=== PATIENT | male | born 1985 | race Hispanic/Latino ===

== ENCOUNTER 2022-07-28 11:13 | Emergency (ER) | payer OTHER, SELFPAY ==
[2022-07-28 11:16] VITALS: BP 105/68; PULSE 71; RESP 14; TEMP 36.6; O2SAT 98; BMI 20.5
--- NOTE | 2022-07-28 11:34 | CT_ITS ---
STUDY: CT SOFT TISSUE NECK WITH CONTRAST REASON FOR EXAM: Male, 36 years old. Concerns for peritonsillar abscess RADIATION DOSAGE (If Supplied By Facility): CTDIvol = ( 10.69 ) mGy, DLP = ( 333.87 ) mGycm TECHNIQUE: The patient was scanned in a multi-detector CT scanner. High resolution transaxial imaging was performed following intravenous administration of IV 75mL Isovue-370. Sagittal and coronal images were reconstructed. Individualized dose optimization techniques were used for this CT. COMPARISON: None. FINDINGS: Normal bilateral parotid glands. Normal bilateral wrapper rewinder spaces. Normal bilateral parapharyngeal spaces. Normal bilateral carotid spaces. Normal bilateral sublingual and submandibular glands and spaces. Normal visualized nasopharynx. Normal retropharyngeal space. Normal perivertebral space. There is a 3.5 cm x 1.8 cm well-defined hypodensity in the right subcapsular region along the inner aspect of the angle of the right mandible. This lies deep to the right palatine tonsils. An early abscess should be ruled out. There is deformity of the hypopharynx due to the mass effect. The visualized tongue, tongue base and oropharynx are normal. The visualized cervical lymph nodes (levels I-) are within normal size limits, and maintain normal morphology. There is no demonstrated solid or cystic mass lesion. There is no abnormal contrast enhancement. Normal epiglottis, bilateral vallecula and hypopharynx. The pre-epiglottic and paraglottic adipose spaces are normal. Normal visualized bilateral piriform sinuses, aryepiglottic folds, vocal cords, and arytenoid-cricoid articulations. Normal subglottic trachea. Normal bilateral lobes of the thyroid gland. Normal visualized pulmonary apices. Normal visualized paranasal sinuses. Normal visualized cervical spine. CT/Soft Tissue Neck WITH Contrast IMPRESSION: Findings suggestive of a 3.5 cm x 1.8 cm phlegmon and possible early abscess formation deep to the right palatine tonsils. Electronically Signed: Reginald Acosta MD at 13:06 EDT ,
--- NOTE | 2022-07-28 11:42 | EX.ED.DYSGE1 ---
HPI <SHEELA France - Last Filed: 07/28/22 20:20> History of Present Illness Chief Complaint: Sore Throat Narrative Narrative: Patient presenting today with a sore throat that he has had since July 20. He states that it acutely worsened on Monday and that is most pronounced on the right side. He feels like there is a lump on the right side of his throat. As of yesterday, he has been unable to tolerate food but is tolerating fluids without difficulty. He is tolerating his secretions. He went to his PCP today who sent him to the emergency department due to trismus, odynophagia, and concerns for peritonsillar abscess. He also states that he had his right mandibular wisdom tooth removed on July 11 but did not have any complications afterwards. He denies any fever, chills, and shortness of breath. PMH includes hypothyroidism. PFSH <SHEELA [place] - Last Filed: 07/28/22 20:20> PFSH Medical History Hypothyroid Home Medications amoxicillin 875 mg-potassium clavulanate 125 mg tablet 1 tab PO BID 10 days #20 tabs 07/28/22 [Rx Last Taken Unknown] oxycodone-acetaminophen 5 mg-325 mg tablet (Percocet) 1 tab PO Q8H PRN pain 3 days #8 tabs 07/28/22 [Rx Last Taken Unknown] Allergy/AdvReac Type Severity Reaction Status Date / Time lactose AdvReac Diarrhea Verified 07/28/22 11:16 Social History Smoking Status: Never smoker ROS <SHEELA [place] - Last Filed: 07/28/22 20:20> ROS ED Constitutional Constitutional ED: Denies chills, fever(s) or sweats ENT ENT ED: Reports ear pain right and sore throat; Denies rhinorrhea Cardiovascular Cardiovascular: Reports palpitations; Denies chest pain Respiratory/Chest Respiratory/Chest: Denies cough, dyspnea or tachypnea Gastrointestinal Gastrointestinal: Denies abdominal pain, nausea or vomiting Musculoskeletal Musculoskeletal: Denies arthralgias or myalgias Integumentary Denies rash Neurologic Neurologic: Denies weakness Psychiatric Psychiatric: Denies anxiety or depression Allergic/Immunologic Allergic/Immunologic ED: Denies lip swelling or mouth swelling EXAM <SHEELA [place] - Last Filed: 07/28/22 20:20> Physical Exam Const Vital Signs: 07/28/22 11:16 07/28/22 13:52 07/28/22 13:55 Temperature 98 F 97.1 F L Temperature Source Temporal Temporal Pulse Rate 71 71 Respiratory Rate 14 16 Blood Pressure 105/68 118/78 118/78 Blood Pressure Mean 80 91 91 Pulse Ox 98 96 Oxygen Delivery Method Room Air Room Air Positive well nourished, well developed and no apparent distress General Appearance ED: well developed HEENT Reports normocephalic, head/scalp atraumatic and TM's clear HEENT Narrative: Because patient has trismus, I am unable to visualize patient's mouth or posterior pharynx. Tympanic Membrane ED: Yes TM's clear Mouth ED: Yes moist mucous membranes normal Eyes PERRL and EOMs intact bilaterally Neck full ROM and supple Chest Wall inspection of chest normal Resp normal respiratory effort and clear to auscultation bilaterally Cardio regular rate and regular rhythm GI soft to palpation, non-tender, non-distended and no masses Back/Spine normal ROM and normal to inspection Extremity normal to inspection and full ROM Neuro oriented x3, CN's II-XII intact bilaterally, moves all extremities, no focal motor deficits and no sensory deficits noted Sensorium / Orientation: awake and alert Psych mental status grossly normal and thought process normal Skin no rashes or lesions noted and no wounds <Dr. Geovany Arana, DO - Last Filed: 07/28/22 16:17> Physical Exam Const Vital Signs: 07/28/22 11:16 07/28/22 13:52 07/28/22 13:55 Temperature 98 F 97.1 F L Temperature Source Temporal Temporal Pulse Rate 71 71 Respiratory Rate 14 16 Blood Pressure 105/68 118/78 118/78 Blood Pressure Mean 80 91 91 Pulse Ox 98 96 Oxygen Delivery Method Room Air Room Air MDM <SHEELA [place] - Last Filed: 07/28/22 20:20> MDM MDM Narrative Medical decision making narrative: Patient presenting with concerns for a peritonsillar abscess. He does have significant trismus on examination and I am unable to visualize patient's mouth/posterior pharynx. He has no drooling, no stridor, no shortness of breath. He is well-appearing and in no acute distress, vital signs are WNL and he is afebrile. Labs will be obtained to rule out leukocytosis, anemia, electrolyte abnormality. CT soft tissue of the neck will be obtained to rule out deep neck infection/peritonsillar abscess. Patient has been given Unasyn and Decadron here as well as Toradol and IV fluids. CT scan does suggest a abscess deep to the right palatine tonsils. I have given patient additional pain control. I have spoke to Dr. Sierra with ENT who felt that this abscess was actually a dental abscess. During observation, this abscess did spontaneously drain and the patient began spitting up large amounts of pus. His trismus has improved significantly and he is able to fully open his mouth without pain. He states that he feels much better. There is no airway compromise and he tolerating this without any difficulty. Able to swallow Augmentin here without any difficulty. I have given him a prescription for Augmentin and pain control. Given him strict return instructions. He is to follow-up with the oral surgeon who removed his wisdom tooth as well as his PCP. He will be discharged home in stable condition and is comfortable with plan. Lab Data Labs: Laboratory Results - last 24 hr 07/28/22 07/28/22 11:40 11:40 WBC 19.8 H RBC 4.79 Hgb 14.3 Hct 41.7 MCV 87.1 MCH 29.9 MCHC 34.3 RDW Std Deviation 38.5 RDW Coeff of Loulou 12.0 Plt Count 402 MPV 10.0 Immature Gran % (Auto) 0.700 Neut % (Auto) 84.9 H Lymph % (Auto) 5.9 L Hart % (Auto) 7.7 Eos % (Auto) 0.5 Baso % (Auto) 0.3 Absolute Neuts (auto) 16.8 H Absolute Lymphs (auto) 1.16 Nucleated RBC % 0 Differential Comment COMMENT Diff Path Review May foll Sodium 140 Potassium 3.5 Chloride 106 Carbon Dioxide 29.0 Anion Gap 5 BUN 10 Creatinine 1.05 Estim Creat Clear Calc 76.30 Est GFR (MDRD) Af Amer 102 Est GFR (MDRD) Non-Af 84 BUN/Creatinine Ratio 9.5 L Glucose 108 H Calcium 10.1 Radiography Diagnostic Testing: Clinical Impression(s) from Imaging Studies Soft Tissue Neck CT 05/11/23 11:34 IMPRESSION: Findings suggestive of a 3.5 cm x 1.8 cm phlegmon and possible early abscess formation deep to the right palatine tonsils. Electronically Signed: Reginald Acosta MD at 13:06 EDT , <Dr. Geovany Arana, DO - Last Filed: 07/28/22 16:17> [facility] Lab Data Attestation: I reviewed the patient's lab results. Lab results narrative: CBC with marked leukocytosis suggestive of systemic inflammation, no anemia, no thrombocytopenia BMP without evidence of significant electrolyte abnormalities, no anion gap, no acute kidney injury. Labs: Laboratory Results - last 24 hr 07/28/22 07/28/22 11:40 11:40 WBC 19.8 H RBC 4.79 Hgb 14.3 Hct 41.7 MCV 87.1 MCH 29.9 MCHC 34.3 RDW Std Deviation 38.5 RDW Coeff of Loulou 12.0 Plt Count 402 MPV 10.0 Immature Gran % (Auto) 0.700 Neut % (Auto) 84.9 H Lymph % (Auto) 5.9 L Hart % (Auto) 7.7 Eos % (Auto) 0.5 Baso % (Auto) 0.3 Absolute Neuts (auto) 16.8 H Absolute Lymphs (auto) 1.16 Nucleated RBC % 0 Differential Comment COMMENT Diff Path Review May foll Sodium 140 Potassium 3.5 Chloride 106 Carbon Dioxide 29.0 Anion Gap 5 BUN 10 Creatinine 1.05 Estim Creat Clear Calc 76.30 Est GFR (MDRD) Af Amer 102 Est GFR (MDRD) Non-Af 84 BUN/Creatinine Ratio 9.5 L Glucose 108 H Calcium 10.1 Radiography Diagnostic Testing: Clinical Impression(s) from Imaging Studies Soft Tissue Neck CT 07/28/22 11:34 IMPRESSION: Findings suggestive of a 3.5 cm x 1.8 cm phlegmon and possible early abscess formation deep to the right palatine tonsils. Electronically Signed: Reginald Acosta MD at 13:06 EDT , Treatment and Re-Evaluation :: ED attending note: I evaluated the patient in conjunction with the [facility]. I agree with his/her statements and above findings. I have personally performed a face to face assessment of the patient and have reviewed the [facility] Note. I performed a substantive portion of the visit including all aspects of the following. I personally saw the patient performed chart review, physical exam, reviewed labs, imaging (if obtained), and formulated a treatment and management plan. Exam: Nursing triage notes reviewed, Vital signs reviewed Constitutional: please see mdm HENT: MMM, trismus noted, large right tonsil, uvula midline, no stridor, no drooling, lymphadenopathy noted to the right side of the neck Eyes: Pupils equal round and reactive to light, Extraocular muscles intact Neck: No stridor, no JVD, decreased neck range of motion secondary to pain Lungs: Clear to auscultation, No wheezing or rales. No increased work of breathing, no conversational dyspnea, no accessory muscle use, no nasal flaring. No respiratory distress noted Heart: Regular rate and rhythm, No murmurs, No rubs and No gallops, 2+ distal pulses (radial, femoral, posterior tibial) in all extremities MDM/plan: Chief Complaint: Sore throat External records reviewed: I considered the following differential diagnosis: [employer]IVER [employer]IC, RPA, Lemierre's syndrome We will obtain a CT scan of the patient's neck with contrast to rule out deep neck base infection. Obtain basic labs and give symptomatic treatment and form steroids, anti-inflammatories. We will consult ENT if CT shows evidence of acute surgical process. CT scan showed evidence of a dental abscess. While in the emergency department the patient abscess started draining his trismus improved he had no airway issues. We had a shared decision-making discussion in regards to transfer for emergent OMFS consultation. Patient stated he like to go home with oral antibiotics and oral pain medicine. He was given Augmentin and Percocet here which he was able to tolerate without issue. He was given strict return precautions and follow-up instructions with FS his primary care physician and the emergency department if his symptoms change or worsen or if you develop any trismus, difficulty swallowing, drooling or neck stiffness. Factors affecting care: None Social determinants of health: None History obtained from others: None Shared decision making: I will have a discussion with the patient and or visitors regarding risk/benefits of further testing or admission. They will be made aware of of the risk/benefits inherent in this decision they will be given the opportunity to voice understanding. Consults: None at this time, possibly ENT v OMFS if patient CT is remarkable for peritonsillar abscess Discharge Plan Triage Chief Complaint: Sore Throat ED Midlevel Provider: Ksenia Mahoney ED Provider: Geovany Arana Dx/Rx/DC Orders Clinical Impression: Abscess, dental Instructions: ED Dental Abscess Prescriptions: New amoxicillin-pot clavulanate 875-125 mg tablet 1 tab PO BID 10 Days Qty: 20 0RF oxycodone-acetaminophen [Percocet] 5-325 mg tablet 1 tab PO Q8H PRN (Reason: pain) 3 Days Qty: 8 0RF Primary Care Provider: Care Physician,No Primary Referrals: Care Physician,No Primary [Primary Care Provider] - Activity Restrictions/Additional Instructions: Please follow-up with your dentist for further evaluation. Please return for any worsening of your symptoms such as difficulty opening your mouth, neck stiffness, neck pain, fever, chills, increased swelling to the abscess area. Disposition Disposition: Home, Self Care Discharge Date/Time: 07/28/22 17:04
[2022-07-28 11:53] LABS: Absolute Lymphocyte Count 1.16 X10^3/uL (0.83-4.51); Absolute Neutrophil Count 16.8 X10^3/uL (2.0-7.7); Basophil# 0.06 X10^3/uL; Basophil% 0.3 % (0-1); Eosinophil# 0.09 X10^3/uL; Eosinophils% 0.5 % (0-5); Hematocrit 41.7 % (40-54); Hemoglobin 14.3 g/dL (13.0-16.5); Lymphocyte # 1.16 X10^3/ul (0.83-4.51); Lymphocyte % 5.9 % (19-41); Mean Corp Hgb Conc 34.3 g/dL (32-36); Mean Corpuscular Hgb 29.9 pg (27.0-32.0); Mean Corpuscular Volume 87.1 fL (80-94); Monocyte# 1.53 X10^3/uL; Monocyte% 7.7 % (0-10); NRBC Flagged by Analyzer 0 % (0-5); Neutrophil # 16.79 X10^3/uL (2.7-7.7); Neutrophil % 84.9 % (47-70); POSITIVE DIFFERENTIAL YES; Platelet Count 402 K/mm3 (150-450); RBC Distribution Width SD 38.5 fl (35.1-43.9); Red Blood Count 4.79 M/mm3 (4.6-6.2); White Blood Count 19.8 K/mm3 (4.4-11.0)
[2022-07-28] MEDS: 0.9% Normal Saline 1,000 ML 999 ML IV (11:54)
[2022-07-28] MEDS: Ketorolac 15 MG/ML Vial IV (11:55)
[2022-07-28] MEDS: dexAMETHasone 10 MG/ML Vial 6 MG IV (11:55)
[2022-07-28 11:58] LABS: Differential Indicated SCAN CRITERIA MET
[2022-07-28 12:02] LABS: Anion Gap 5 (5-15); BUN 10 mg/dL (7-18); BUN/Creat Ratio 9.5 RATIO (10-20); Calcium,Total 10.1 mg/dL (8.5-10.1); Chloride 106 mmol/L (98-107); Creatinine, Serum 1.05 mg/dL (0.70-1.30); EST Glomerular Filtration Rate 84 mL/min (>60); Est Glom Filt Rate - Afr Amer 102 mL/min (>60); Glucose 108 mg/dL (74-106); Potassium 3.5 mmol/L (3.5-5.1); Sodium Level 140 mmol/L (136-145)
[2022-07-28 13:52] VITALS: BP 118/78
[2022-07-28 13:55] VITALS: BP 118/78; PULSE 71; RESP 16; TEMP 36.2; O2SAT 96
--- NOTE | 2022-07-28 13:56 | NURSING ---
Pt not sepsis alert per Dr. Arana.
[2022-07-28] MEDS: Morphine 4 MG/ML Syringe IV (15:05)
[2022-07-28] MEDS: Amox/Clavulanate 875 MG Tablet PO (16:59)
[2022-08-01 09:16] LABS: Pathologist Review Reviewed
== END 2022-07-28 17:04 | disposition home or self-care (01) ==
PROVIDERS: Physician Assistant; Emergency Provider Emergency Medicine; Visit Provider Emergency Medicine
DX: K04.7 Periapical abscess without sinus (principal); J02.9 Acute pharyngitis, unspecified
CPT/HCPCS: 70491; 80048; 85025; 96361; 96365; 96375; 99284; J7030; Q9967; A4216; J0295